=== PATIENT | female | born 1945 | race Caucasian/White ===

== ENCOUNTER 2019-11-16 11:38 | Emergency (ER) | payer MEDICARE, OTHER ==
[~2019-11-16] VITALS: Ht 160 cm; Wt 72.6 kg
[2019-11-16] MEDS ORDERED: ONDANSETRON HCL INJ 2MG/ML 2ML 2 MG/ML VIAL IV STA (11:43)
[2019-11-16] MEDS ORDERED: FAMOTIDINE 20 MG/2 ML VIAL IV STA (11:43)
[2019-11-16] MEDS ORDERED: SODIUM CHLORIDE 0.9% 1000ML 1,000 ML IV STA (11:43)
[2019-11-16] MEDS ORDERED: MORPHINE SULFATE INJ 4 MG/ML INJ 1ML IV PRN (11:45)
[2019-11-16 12:32] LABS: BASOPHILS % 0.6 % (0.0-1.0); EOSINOPHILS # (AUTO) 0.2 (0.0-0.4); EOSINOPHILS % 4.7 % (0.0-6.0); HEMATOCRIT 38.5 % (34.2-44.1); HEMOGLOBIN 12.4 g/dL (12.0-16.0); LYMPHOCYTES # (AUTO) 1.6 (1.0-3.2); LYMPHOCYTES % 32.4 % (18.0-39.1); MEAN CORPUSCULAR HEMOGLOBIN 28.8 pg (28-32); MEAN CORPUSCULAR HGB CONC 32.2 g/dL (31-35); MEAN CORPUSCULAR VOLUME 89.5 fL (81-99); MONOCYTES # (AUTO) 0.7 (0.2-0.8); MONOCYTES % 13.8 % (4.4-11.3); NEUTROPHILS # (AUTO) 2.4 (2.1-6.9); NEUTROPHILS % 48.3 % (38.7-80.0); PLATELET COUNT 240 x10e3/uL (140-360); RED CELL DISTRIBUTION WIDTH 12.4 % (11.7-14.4)
[2019-11-16 12:40] LABS: CLARITY,URINE CLEAR (CLEAR); COLOR,URINE YELLOW (YELLOW); KETONES,URINE NEGATIVE (NEGATIVE); LEUKOCYTE ESTERASE ,URINE TRACE (NEGATIVE); NITRITE,URINE NEGATIVE (NEGATIVE); PROTEIN,URINE DIPSTICK TRACE (NEGATIVE); URINE UROBILINOGEN 0.2 mg/dL (0.2 - 1)
[2019-11-16 12:41] LABS: BILIRUBIN,URINE LARGE (NEGATIVE)
[2019-11-16 12:43] LABS: BACTERIA,URINE FEW /HPF; EPITHELIAL CELLS,URINE MODERATE /LPF; MUCUS,URINE FEW (RARE)
[2019-11-16 12:52] LABS: ALBUMIN 3.8 g/dL (3.5-5.0); ALBUMIN/GLOBULIN RATIO 1.2 (0.8-2.0); ANION GAP 14.6 mmol/L (8-16); CALCIUM 9.2 mg/dL (8.4-10.2); CREATININE, SERUM 0.95 mg/dL (0.57-1.11); POTASSIUM 4.6 mmol/L (3.5-5.1)
[2019-11-16 12:59] LABS: CREATINE KINASE MB 0.4 ng/mL (0-5.0)
--- NOTE | 2019-11-16 13:02 | Diagnostic Imaging Report ---
EXAM: CHEST SINGLE (PORTABLE) DATE: 11/16/2019 12:29 PM INDICATION: Abdominal pain COMPARISON: None FINDINGS: The trachea is midline. There are minimally increased left basilar opacities present likely reflecting atelectasis. There is no evidence for large focal consolidation, pneumothorax, or significant pleural effusion. The cardiomediastinal silhouette appears magnified by technique but is otherwise unremarkable. No acute osseous abnormality is identified. IMPRESSION: Minimally increased left basilar opacity suggestive of atelectasis. Otherwise, no acute cardiopulmonary process identified. Signed by: Dr. Quentin Santacruz MD on 11/16/2019 12:59 PM
--- NOTE | 2019-11-16 13:44 | Emergency Department Note ---
History of Present Illnes History of Present Illness Chief Complaint: Abdominal Complaints History of Present Illness This is a 74 year old female arrives to the ED with complaints of abdominal pain, patient states pain has and present for several weeks will see at [place] and only received blood work and was discharged home. Patient states the pain is constant and unchanged for the last several weeks. Patient states she told her primary care doctor but was instructed to come back to the emergency department. Patient denies any nausea or vomiting at the time but states she had it last week. 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 Any updates have been documented here. Past Medical History Recent Fever: No Clinical Suspicion of Infectio: No New/Unexplained Change in Ment: No Past Medical History: Hypertension, Diabetes, Kidney Stones, Hyperlipedemia Other Medical History: lupus ibs Past Surgical History: Cholecysctectomy, Hysterectomy Other Surgery: right kidney removed Social History Smoking Cessation: Never Smoker Alcohol Use: None Any Illegal Drug Use: No TB Exposure/Symptoms: No Physically hurt or threatened: No Other Last Tetanus: utd Any Pre-Existing Lines (PICC,: No Is patient up to date on immun: Yes Last Flu: UNKNOWN Last Pneumovax: UNKNOWN Review of Systems Review of Systems Constitutional: Reports no symptoms EENTM: Reports no symptoms Cardiovascular: Reports no symptoms Respiratory: Reports no symptoms Gastrointestinal: Reports as per HPI, Reports abdominal pain, Reports nausea, Reports vomiting Genitourinary: Reports no symptoms Musculoskeletal: Reports no symptoms Integumentary: Reports no symptoms Neurological: Reports no symptoms Psychological: Reports no symptoms Endocrine: Reports no symptoms Hematological/Lymphatic: Reports no symptoms Physical Exam Related Data Allergies: Coded Allergies: hydromorphone (Verified Allergy, Unknown, paralysis, 11/16/19) Triage Vital Signs Vital Signs Date Time Temp Pulse Resp B/P (MAP) Pulse Ox O2 Delivery O2 Flow Rate FiO2 11/16/19 11:43 97.5 93 18 128/77 97 Vital signs reviewed: Yes Physical Exam CONSTITUTIONAL Constitutional: Present well-developed, Present well-nourished HENT HENT: Present normocephalic, Present atraumatic, Present oropharynx clear/moist, Present nose normal HENT L/R: Present left ext ear normal, Present right ext ear normal EYES Eyes: Reports PERRL, Reports conjunctivae normal NECK Neck: Present ROM normal PULMONARY Pulmonary: Present effort normal, Present breath sounds normal CARDIOVASCULAR Cardiovascular: Present regular rhythm, Present heart sounds normal, Present capillary refill normal, Present normal rate GASTROINTESTINAL Abdominal: Present soft, Present nontender, Present bowel sounds normal GENITOURINARY Genitourinary: Present exam deferred SKIN Skin: Present warm, Present dry MUSCULOSKELETAL Musculoskeletal: Present ROM normal NEUROLOGICAL Neurological: Present alert, Present oriented x 3, Present no gross motor or sensory deficits PSYCHOLOGICAL Psychological: Present mood/affect normal, Present judgement normal Results Laboratory Result Diagram: 11/16/19 1154 11/16/19 1154 Laboratory Laboratory Tests Test 11/16/19 11:54 11/16/19 11:50 White Blood Count 4.87 x10e3/uL (4.8-10.8) Red Blood Count 4.30 x10e6/uL (3.6-5.1) Hemoglobin 12.4 g/dL (12.0-16.0) Hematocrit 38.5 % (34.2-44.1) Mean Corpuscular Volume 89.5 fL (81-99) Mean Corpuscular Hemoglobin 28.8 pg (28-32) Mean Corpuscular Hemoglobin Concent 32.2 g/dL (31-35) Red Cell Distribution Width 12.4 % (11.7-14.4) Platelet Count 240 x10e3/uL (140-360) Neutrophils (%) (Auto) 48.3 % (38.7-80.0) Lymphocytes (%) (Auto) 32.4 % (18.0-39.1) Monocytes (%) (Auto) 13.8 % (4.4-11.3) Eosinophils (%) (Auto) 4.7 % (0.0-6.0) Basophils (%) (Auto) 0.6 % (0.0-1.0) Neutrophils # (Auto) 2.4 (2.1-6.9) Lymphocytes # (Auto) 1.6 (1.0-3.2) Monocytes # (Auto) 0.7 (0.2-0.8) Eosinophils # (Auto) 0.2 (0.0-0.4) Basophils # (Auto) 0.0 (0.0-0.1) Absolute Immature Granulocyte (auto 0.01 x10e3/uL (0-0.1) Sodium Level 137 mmol/L (136-145) Potassium Level 4.6 mmol/L (3.5-5.1) Chloride Level 103 mmol/L (98-107) Carbon Dioxide Level 24 mmol/L (22-29) Anion Gap 14.6 mmol/L (8-16) Blood Urea Nitrogen 10 mg/dL (7-26) Creatinine 0.95 mg/dL (0.57-1.11) Estimat Glomerular Filtration Rate 58 ML/MIN (60-) BUN/Creatinine Ratio 11 (6-25) Glucose Level 214 mg/dL (74-118) Calcium Level 9.2 mg/dL (8.4-10.2) Total Bilirubin 0.4 mg/dL (0.2-1.2) Aspartate Amino Transf (AST/SGOT) 54 IU/L (5-34) Alanine Aminotransferase (ALT/SGPT) 65 IU/L (0-55) Alkaline Phosphatase 59 IU/L (40-150) Creatine Kinase 26 IU/L (29-168) Creatine Kinase MB 0.40 ng/mL (0-5.0) Troponin I 0.016 ng/mL (0-0.300) Total Protein 7.0 g/dL (6.5-8.1) Albumin 3.8 g/dL (3.5-5.0) Globulin 3.2 g/dL (2.3-3.5) Albumin/Globulin Ratio 1.2 (0.8-2.0) Lipase 54 U/L (8-78) Urine Color Yellow (YELLOW) Urine Clarity Clear (CLEAR) Urine pH 6 (5 - 7) Urine Specific [place] 1.030 (1.010-1.025) Urine Protein Trace (NEGATIVE) Urine Glucose (UA) Negative (NEGATIVE) Urine Ketones Negative (NEGATIVE) Urine Blood Negative (NEGATIVE) Urine Nitrite Negative (NEGATIVE) Urine Bilirubin Large (NEGATIVE) Urine Urobilinogen 0.2 mg/dL (0.2 - 1) Urine Leukocyte Esterase Trace (NEGATIVE) Urine RBC 6-10 /HPF (0-5) Urine WBC 6-10 /HPF (0-5) Urine Epithelial Cells Moderate /LPF (NONE) Urine Bacteria Few /HPF (NONE) Urine Mucus Few (RARE) Lab results reviewed: Yes Imaging Imaging results reviewed: Yes Impressions IMPRESSION: 1. Moderate size hiatal hernia without evidence for gastric obstruction. Mild wall thickening noted of the gastric antrum which is nonspecific but can be seen in the setting of gastritis. 2. Diverticulosis coli without evidence for acute diverticulitis. 3. Status post cholecystectomy, perinephric to [place], and hysterectomy. Signed by: Dr. Quentin Santacruz MD on 11/16/2019 3:20 PM Procedures 12 Lead ECG Interpretation ECG Interpretation : ECG: ECG 1 River Driver: Interpreted by ED physician Prior ECG tracings: reviewed Rhythm: sinus rhythm QRS axis: left ST segments normal: Yes T waves normal: Yes Assessment & Plan Medical Decision Making MDM 74-year-old female arrived to the ED with epigastric abdominal pain. Patient states pain hasn't present for several weeks, recently seen at [facility] where she was sent home with no medications and no imaging. Patient's labwork done and the ED today unremarkable. Patient's CT scan consistent with gastritis and a hiatal hernia. Patient with a benign abdominal exam. Patient informed of all imaging and laboratory findings. Personally made an appointment for patient to see Dr. Means from gastroenterology tomorrow morning. Patient stable for DC home. Assessment & Plan Final Impression: (1) Gastritis Depart Disposition: HOME, SELF-CARE Last Vital Signs Date Time Temp Pulse Resp B/P (MAP) Pulse Ox O2 Delivery O2 Flow Rate FiO2 11/16/19 13:06 77 18 130/80 100 11/16/19 11:43 97.5 Home Meds Active Scripts Omeprazole (OMEPRAZOLE) 40 Mg Capsule., 40 MG PO DAILY, #30 Prov:PACHECO GOMEZ, 11/16/19 Medications in the ED Sodium Chloride 1,000 ml @ 0 mls/hr Q0M STAT IV Last administered on 11/16/19at 11:55; Admin Dose 1,000 MLS/HR; Start 11/16/19 at 11:43; Stop 11/16/19 at 11:45; Status DC Famotidine 20 mg NOW STAT IV Last administered on 11/16/19at 11:55; Admin Dose 20 MG; Start 11/16/19 at 11:43; Stop 11/16/19 at 11:51; Status DC Ondansetron HCl 4 mg NOW STAT IV Last administered on 11/16/19at 11:55; Admin Dose 4 MG; Start 11/16/19 at 11:43; Stop 11/16/19 at 11:51; Status DC Morphine Sulfate 4 mg ONCE PRN IV SEVERE PAIN (7-10) Last administered on 11/16/19at 12:05; Admin Dose 4 MG; Start 11/16/19 at 11:45; Stop 11/23/19 at 11:44 PACHECO GOMEZ DO Nov 16, 2019 13:44
[2019-11-16] MEDS ORDERED: SODIUM CHLORIDE 0.9% 50ML 50 ML ONE (14:25)
[2019-11-16] MEDS ORDERED: IOPAMIDOL 370 MG/ML 200 ML INFUS..BTL INJ ONE (14:25)
--- NOTE | 2019-11-16 15:23 | Diagnostic Imaging Report ---
CT of the abdomen and pelvis, with contrast. History: Abdominal pain. Comparison: None available. Technique: Multidetector CT scanning of the abdomen and pelvis was performed from the level of the lung bases to the inferior pubic rami after intravenous administration of contrast. Coronal and sagittal multiplanar reformations were obtained. RADIATION DOSE: Total DLP: 727.55 mGy*cm Dose modulation, iterative reconstruction, and/or weight based adjustment of the mA/kV was utilized to reduce the radiation dose to as low as reasonably achievable. FINDINGS: There is mild bibasilar atelectasis/scarring present. The imaged portion of the heart demonstrates no significant abnormalities. The liver is normal in size without evidence for focal abnormality. The gallbladder is surgically absent. There is no biliary ductal dilatation. There is a moderate size hiatal hernia present. There is mild wall thickening noted at the gastric antrum without significant adjacent inflammatory change. The spleen, pancreas, and adrenal glands are unremarkable. The right kidney surgically absent. No abnormal mass or abnormality is identified within the right renal fossa. The left kidney is normal in size and location and enhances normally. There is no evidence for hydronephrosis. The left ureter is normal course and caliber. The partially distended urinary bladder demonstrates no significant abnormalities noted the uterus is surgically absent. No abnormal adnexal masses are identified. The abdominal aorta is normal course and caliber. The IVC is grossly unremarkable. Please note evaluation the bowel is limited without the use of enteric contrast material. The visualized loops of small and large bowel demonstrate no evidence of obstruction or inflammation. The appendix is visualized and appears unremarkable. Scattered diverticula are noted within the sigmoid colon without evidence for acute diverticulitis. There is no ascites or intraperitoneal free air. No abnormally enlarged lymph nodes are identified within the abdomen or pelvis. There are multilevel degenerative changes of the thoracolumbar spine including mild anterolisthesis of L4 on L5. There is no evidence for acute fracture or destructive process. The extraperitoneal soft tissues are unremarkable. IMPRESSION: 1. Moderate size hiatal hernia without evidence for gastric obstruction. Mild wall thickening noted of the gastric antrum which is nonspecific but can be seen in the setting of gastritis. 2. Diverticulosis coli without evidence for acute diverticulitis. 3. Status post cholecystectomy, perinephric to [place], and hysterectomy. Signed by: Dr. Quentin Santacruz MD on 11/16/2019 3:20 PM
[2019-11-16] MEDS ORDERED: OMEPRAZOLE40 MG PO (15:29)
[2019-11-16 15:43] VITALS: BP 131/79
== END 2019-11-16 15:52 | disposition home or self-care (01) ==
LOC: ER 11:38
DX: R10.13 Epigastric pain (principal); K29.70 Gastritis, unspecified, without bleeding; E11.65 Type 2 diabetes mellitus with hyperglycemia; I10 Essential (primary) hypertension; M32.9 Systemic lupus erythematosus, unspecified; E78.5 Hyperlipidemia, unspecified; Z87.442 Personal history of urinary calculi
CPT/HCPCS: 36415; 71045; 74177; 80053; 81001; 82550; 82553; 83690; 84484; 85025; 93005; 99284; J2270; J2405; J7030; Q9967

== ENCOUNTER → 2019-12-04 | Outpatient (CLI) | payer MEDICARE, OTHER ==
[~2019-12-04] MED LIST: ALBUTEROL0.63 MG/3 INH; COLESTIPOL HCL1 GM PO; DICYCLOMINE HCL10 MG PO; ETODOLAC300 MG PO; GLIPIZIDE5 MG PO; HYDROXYCHLOROQ200 MG PO; LEFLUNOMIDE20 MG PO; LEVOTHYROXINE50 MCG PO; LISINOPRIL2.5 MG PO; METFORMIN HCL500 MG PO; MONTELUKAST SOD10 MG PO; NASONEX17 GM; OMEPRAZOLE40 MG PO; PAMELOR25 MG PO; SIMVASTATIN80 MG PO; SYMBICORT 16010.2 GM INH; VITAMIN D250 MCG PEG
[2019-12-04 12:04] LABS: BASOPHILS # (AUTO) 0.1 (0.0-0.1); BASOPHILS % 0.8 % (0.0-1.0); EOSINOPHILS # (AUTO) 0.5 (0.0-0.4); EOSINOPHILS % 7.7 % (0.0-6.0); HEMATOCRIT 39.1 % (34.2-44.1); HEMOGLOBIN 12.4 g/dL (12.0-16.0); LYMPHOCYTES # (AUTO) 1.6 (1.0-3.2); LYMPHOCYTES % 25.8 % (18.0-39.1); MEAN CORPUSCULAR HGB CONC 31.7 g/dL (31-35); MEAN CORPUSCULAR VOLUME 91.4 fL (81-99); MONOCYTES # (AUTO) 0.9 (0.2-0.8); NEUTROPHILS # (AUTO) 3.3 (2.1-6.9); NEUTROPHILS % 51.2 % (38.7-80.0); PLATELET COUNT 193 x10e3/uL (140-360); RED BLOOD COUNT 4.28 x10e6/uL (3.6-5.1); RED CELL DISTRIBUTION WIDTH 12.4 % (11.7-14.4)
== END ==
LOC: RAD 05:00 → EDSTATUS 12-09 09:00
PROVIDERS: ATTEND Internal Medicine Gastroenterology
DX: U07.1 COVID-19 (principal); Z01.818 Encounter for other preprocedural examination; R11.2 Nausea with vomiting, unspecified; K20.9 Esophagitis, unspecified; R10.9 Unspecified abdominal pain; R19.7 Diarrhea, unspecified; Z53.8 Procedure and treatment not carried out for other reasons
CPT/HCPCS: 36415; 85025; 93005; U0002

== ENCOUNTER → 2020-03-14 | Day surgery (SDC) | payer MEDICARE, OTHER ==
[2020-03-10 09:46] LABS: BASOPHILS % 0.7 % (0.0-1.0); EOSINOPHILS # (AUTO) 0.5 (0.0-0.4); EOSINOPHILS % 8.2 % (0.0-6.0); HEMATOCRIT 39.9 % (34.2-44.1); HEMOGLOBIN 12.4 g/dL (12.0-16.0); LYMPHOCYTES # (AUTO) 1.7 (1.0-3.2); LYMPHOCYTES % 29.9 % (18.0-39.1); MEAN CORPUSCULAR HEMOGLOBIN 28.9 pg (28-32); MEAN CORPUSCULAR HGB CONC 31.1 g/dL (31-35); MONOCYTES # (AUTO) 0.8 (0.2-0.8); NEUTROPHILS # (AUTO) 2.5 (2.1-6.9); PLATELET COUNT 215 x10e3/uL (140-360); RED BLOOD COUNT 4.29 x10e6/uL (3.6-5.1); RED CELL DISTRIBUTION WIDTH 12.8 % (11.7-14.4)
[~2020-03-14] MED LIST changes: +FENTANYL CITRATE/PF 100MCG/2 ML INJ ONE; +GABAPENTIN400 MG PO; +GLUCAGON FOR INJ 1 MG VIAL ONE; +HYOSCYAMINE 0.125 MG TAB ONE; +MIDAZOLAM HCL 2 MG/2 ML VIAL ONE; +PROPOFOL IV EMULSION 10 MG/ML 20 ML VIAL ONE; -VITAMIN D250 MCG PEG; +VITAMIN D250 MCG PO
[2020-03-14 12:25] VITALS: BP 109/61
[2020-03-14 14:55] LABS: C DIFFICILE TOXIN A&B AMP PROB NEGATIVE (NEGATIVE); WBC,FECAL (FECAL LACTOFERRIN) NEGATIVE (NEGATIVE)
== END | disposition home or self-care (01) ==
LOC: OR 07:19
PROVIDERS: ATTEND Internal Medicine Gastroenterology
DX: K29.50 Unspecified chronic gastritis without bleeding (principal); D12.5 Benign neoplasm of sigmoid colon; K31.7 Polyp of stomach and duodenum; K52.9 Noninfective gastroenteritis and colitis, unspecified; K20.90 Esophagitis, unspecified without bleeding; K44.9 Diaphragmatic hernia without obstruction or gangrene; K57.30 Diverticulosis of large intestine without perforation or abscess without bleeding; K62.89 Other specified diseases of anus and rectum; K59.00 Constipation, unspecified; K64.8 Other hemorrhoids; D72.820 Lymphocytosis (symptomatic); E11.9 Type 2 diabetes mellitus without complications; E03.9 Hypothyroidism, unspecified; J45.909 Unspecified asthma, uncomplicated; I10 Essential (primary) hypertension; M06.9 Rheumatoid arthritis, unspecified; E78.5 Hyperlipidemia, unspecified; F41.9 Anxiety disorder, unspecified; F32.9 Major depressive disorder, single episode, unspecified; Z01.810 Encounter for preprocedural cardiovascular examination; Z01.812 Encounter for preprocedural laboratory examination; Z11.59 Encounter for screening for other viral diseases; Z79.84 Long term (current) use of oral hypoglycemic drugs
CPT/HCPCS: 36415; 43239; 45380; 45385; 83630; 83993; 85025; 87045; 87177; 87328; 87493; 93005; J1610; J2250; J2704; J3010; U0002; 45378

== ENCOUNTER → 2023-07-05 | Outpatient (REF) | payer MEDICARE, OTHER ==
[~2023-07-05] MED LIST changes: -FENTANYL CITRATE/PF 100MCG/2 ML INJ ONE; +FUROSEMIDE40 MG PO; -GLUCAGON FOR INJ 1 MG VIAL ONE; +HUMIRA40 MG/0.8 IM; -HYOSCYAMINE 0.125 MG TAB ONE; +IOPAMIDOL 370 MG/ML 100 ML INFUS..BTL INJ ONE; +MAGNESIUM OXID400 MG PO; -MIDAZOLAM HCL 2 MG/2 ML VIAL ONE; -PROPOFOL IV EMULSION 10 MG/ML 20 ML VIAL ONE
[2023-07-05 10:34] LABS: CREATININE, SERUM 0.74 mg/dL (0.57-1.11)
== END ==
LOC: CT 09:45
PROVIDERS: ATTEND Nurse Practitioner
DX: R10.84 Generalized abdominal pain (principal)
CPT/HCPCS: 36415; 74177; 82565; 84520; Q9967